=== PATIENT | female | born 1955 | race Caucasian/White ===

== ENCOUNTER → 2017-04-13 | Day surgery (SDC) | payer OTHER ==
[~2017-04-13] VITALS: Ht 170.2 cm; Wt 80.3 kg
[~2017-04-13] MED LIST: ASPIR 8181 MG PO; EFFEXOR XR150 MG PO; JUICE PLUS PO; LIPITOR40 MG PO; LOPRESSOR25 MG PO; PLAVIX75 MG PO; TYLENOL WITH C1 EACH PO; VESICARE5 MG PO
--- NOTE | ~2017-04-13 | OR ---
PATIENT'S NAME: ALONSO GALINDO [facility] AGE: 61 Y [address] ROOM: [place] [id number] [place] [facility] [place]: 04/13/2017 OR/Procedure Report DISCHARGE DATE: FAMILY PHYSICIAN: Dell Us MD ATTENDING PHYSICIAN: Alejandra Barcenas SURGEON: Alejandra Barcenas MD NAPPING MACHINE OPERATOR: DATE OF PROCEDURE: 04/13/2017 PREOPERATIVE DIAGNOSIS: 1. Right ureter stones. 2. Left nephrolithiasis. POSTOPERATIVE DIAGNOSES: 1. Right ureter stones. 2. Left nephrolithiasis. PROCEDURE PERFORMED: Cystoscopy with right stent placement. ANESTHESIA: MAC. COMPLICATIONS: None. INDICATION FOR PROCEDURE: The patient is a 61-year-old female with 2 to 3 proximal to mid ureter stones with obstruction. The patient is currently on Plavix which cannot be discontinued. PROCEDURE IN DETAIL: After informed consent was obtained, the patient was taken to the operating room. A MAC anesthetic was applied, and she was placed in the dorsal lithotomy position. The groin area was prepped and draped in the normal sterile fashion. Cystoscope was introduced into the urethra and bladder without difficulty. The right ureteral orifice was identified and cannulated with a guidewire up into the renal pelvis. Next, a 6-Arabic multi- length ureteral stent was passed over the guidewire up into the renal pelvis. Radiograph imaging showed good position of the stent. This did drain urine after placement. The patient tolerated the procedure well and was transferred to the recovery room in good condition. MD ROMARIO MALLOY/modl PATIENT'S NAME: [facility] Nicolle [facility] AGE: 61 Y [address] ROOM: [place] [address] [place] [facility] [place]: 04/13/2017 OR/Procedure Report DISCHARGE DATE: FAMILY PHYSICIAN: Dell Us MD ATTENDING PHYSICIAN: Alejandra Barcenas /[id number] CC: Dell Us MD d: 04/16/17 1227 t: 04/24/17 1454, OPERATIVE SUMMARY
== END | disposition disaster alternative care site (69) ==
LOC: GPOC 11:00 → GSDC 11:00
PROC: 0T768DZ Dilation of Right Ureter with Intraluminal Device, Via Natural or Artificial Opening Endoscopic (ICD-10-PCS; principal; 2017-04-13)
DX: N20.2 Calculus of kidney with calculus of ureter (principal); I25.10 Atherosclerotic heart disease of native coronary artery without angina pectoris; I10 Essential (primary) hypertension; E78.5 Hyperlipidemia, unspecified; F41.9 Anxiety disorder, unspecified; F32.9 Major depressive disorder, single episode, unspecified; K21.9 Gastro-esophageal reflux disease without esophagitis; Z90.710 Acquired absence of both cervix and uterus; Z90.49 Acquired absence of other specified parts of digestive tract; Z95.5 Presence of coronary angioplasty implant and graft; Z98.890 Other specified postprocedural states
CPT/HCPCS: C1769; J1100; J1956; J2001; J2405; J7120

== ENCOUNTER → 2017-05-07 | Day surgery (SDC) | payer OTHER ==
[~2017-05-07] VITALS: Ht 170.2 cm; Wt 77.7 kg
--- NOTE | ~2017-05-07 | OR ---
PATIENT'S NAME: ALONSO GALINDO [facility] AGE: 61 Y [address] ROOM: [place] [address] [place] [facility] [place]: 05/07/2017 OR/Procedure Report DISCHARGE DATE: FAMILY PHYSICIAN: Dell Us MD ATTENDING PHYSICIAN: Alejandra Barcenas SURGEON: Alejandra Barcenas MD FUR STYLIST: DATE OF PROCEDURE: 05/07/2017 PREOPERATIVE DIAGNOSIS: Right ureter stones. POSTOPERATIVE DIAGNOSIS: Right ureter stones. PROCEDURE PERFORMED: Right ureteroscopy with laser lithotripsy, right retrograde pyelogram, and right stent exchange. ANESTHESIA: General. COMPLICATIONS: None. INDICATION FOR PROCEDURE: The patient is a 61-year-old female who had acute onset of right flank pain late last month. Abdominopelvic CT scan revealed a nonobstructing 9 x 13 mm left renal stone and 3 stones in the upper to mid right ureter. The patient underwent cystoscopy and right stent placement on April 13. The patient is currently on Plavix, status post cardiac stent placement, which could not be discontinued in the near future. DETAILS OF PROCEDURE: After informed consent obtained, the patient was taken to the operating room. A general anesthetic was applied and she was placed in a dorsal lithotomy position. The groin area was prepped and draped in normal sterile fashion. Cystoscope was introduced into the urethra and bladder without difficulty. The stent was identified in the right ureteral orifice and engaged with a grasping device and partially removed. A guidewire was then passed through the stent up into the renal pelvis. Next, ureteroscope was introduced into the distal ureter and driven up to the level of the first stone. Next, the holmium laser fiber was introduced and the stone was fragmented into multiple smaller pieces. I then advanced further and saw another stone which was also fragmented. I continued advancement and the third stone was fragmented. I was actually able to drive the ureteroscope up into the renal pelvis. I then slowly retracted the ureteroscope and to assure that I got all stone material, I injected contrast through the ureteroscope up towards renal pelvis. The patient was noted to have some extravasation of contrast on the retrograde; therefore, it was decided to place a stent to allow the ureter to heal. Cystoscope was reintroduced and a 6-German multi- length ureteral stent was passed over the guidewire up into the renal pelvis. PATIENT'S NAME: ALONSO GALINDO [facility] AGE: 61 Y [address] ROOM: [place] [address] [place] [facility] [place]: 05/07/2017 OR/Procedure Report DISCHARGE DATE: FAMILY PHYSICIAN: Dell Us MD ATTENDING PHYSICIAN: Alejandra Barcenas Radiograph imaging showed good position of the stent. The patient tolerated her procedure well and transferred to recovery room in good condition. MD ROMARIO MALLOY/magdal /[id number] CC: Dell Us MD d: 05/09/17 0044 t: 05/21/17 1019, OPERATIVE SUMMARY
== END | disposition disaster alternative care site (69) ==
LOC: GSDC 07:00
PROC: 0TF68ZZ Fragmentation in Right Ureter, Via Natural or Artificial Opening Endoscopic (ICD-10-PCS; principal; 2017-05-07)
PROC: 0T768DZ Dilation of Right Ureter with Intraluminal Device, Via Natural or Artificial Opening Endoscopic (ICD-10-PCS; 2017-05-07)
DX: N20.2 Calculus of kidney with calculus of ureter (principal); I10 Essential (primary) hypertension; E78.00 Pure hypercholesterolemia, unspecified; I25.10 Atherosclerotic heart disease of native coronary artery without angina pectoris; F41.9 Anxiety disorder, unspecified; F32.9 Major depressive disorder, single episode, unspecified; K21.9 Gastro-esophageal reflux disease without esophagitis; E78.5 Hyperlipidemia, unspecified; Z98.42 Cataract extraction status, left eye; Z98.41 Cataract extraction status, right eye; Z90.710 Acquired absence of both cervix and uterus; Z98.890 Other specified postprocedural states; Z79.82 Long term (current) use of aspirin; Z79.899 Other long term (current) drug therapy
CPT/HCPCS: C1769; J1100; J1956; J2001; J2250; J2405; J7120